=== PATIENT | female | born 1965 | race Caucasian/White ===

== ENCOUNTER 2018-07-17 10:27 | Inpatient (IN) | payer OTHER ==
[2018-07-17 11:30] LABS: ADD MAN DIFF? NO
[2018-07-17 11:36] LABS: BASOPHIL # 0.1 10^3/ul (0.0-0.1); BASOPHILS % 0.5 % (0.0-2.0); EOSINOPHILS # 0.3 10^3/ul (0.0-0.5); EOSINOPHILS % 3.1 % (0.0-7.0); HEMATOCRIT 26.5 % (37.0-47.0); HEMOGLOBIN 7.7 g/dl (12.0-16.0); LYMPHOCYTES # 1.5 10^3/ul (0.8-2.9); LYMPHOCYTES % 14.8 % (15.0-51.0); MEAN CORPUSCULAR HEMOGLOBIN 28.2 pg (29.0-33.0); MEAN CORPUSCULAR HGB CONC 29.1 g/dl (32.0-37.0); MEAN CORPUSCULAR VOLUME 97.1 fl (82.0-101.0); MEAN PLATELET VOLUME 10.5 fl (7.4-10.4); MONOCYTE # 0.9 10^3/ul (0.3-0.9); NEUTROPHIL # 7.2 10^3/ul (1.6-7.5); PLATELET COUNT 404 10^3/UL (140-415); RED BLOOD COUNT 2.73 10^6/ul (4.20-5.40); RED CELL DISTRIBUTION WIDTH 16.9 % (11.5-14.5)
[2018-07-17] MEDS: SODIUM CHLORIDE 0.9% 1L BAG IV* (11:45)
[2018-07-17] MEDS: KETOROLAC 15 MG INJ IV (11:45)
[2018-07-17] MEDS: CEFEPIME 2GM/50 ML (PMX) 50 ML IVPB (11:45)
[2018-07-17] MEDS: LORAZEPAM 2 MG INJ IV (11:51)
[2018-07-17] MEDS: VANCOMYCIN 1 GM (PMX) 250 ML IVPB (11:52)
[2018-07-17 11:57] LABS: LACTIC ACID 1.2 mmol/L (0.5-2.0)
[2018-07-17 11:57] LABS: ALANINE AMINOTRANSFERASE 9 IU/L (13-69); ALBUMIN 3.1 g/dl (3.3-4.9); ALBUMIN/GLOBULIN RATIO 0.65; ALKALINE PHOSPHATASE 113 IU/L (42-121); ANION GAP 16 (8-16); ASPARTATE AMINO TRANSFERASE 13 IU/L (15-46); BLOOD UREA NITROGEN 48 mg/dl (7-20); CALCIUM 8.5 mg/dl (8.4-10.2); CARBON DIOXIDE 33 mmol/L (21-31); CHLORIDE 98 mmol/L (97-110); CREATININE 7.05 mg/dl (0.44-1.00); GLUCOSE 182 mg/dl (70-220); POTASSIUM 4.6 mmol/L (3.5-5.1); SODIUM 142 mmol/L (135-144); TOTAL PROTEIN 7.8 g/dl (6.1-8.1)
[2018-07-17 12:03] LABS: INR 1.05; PROTIME 13.8 Sec (11.9-14.9); PT RATIO 1.1
[2018-07-17 12:04] LABS: PARTIAL THROMBOPLASTIN TIME 33.5 Sec (25.0-35.0)
[2018-07-17 12:05] LABS: TROPONIN-I < 0.012 ng/ml (0.000-0.120)
[2018-07-17] MEDS ORDERED: ONDANSETRON 4 MG INJ IV (14:00)
[2018-07-17] MEDS ORDERED: ACETAMINOPHEN 325 MG TAB PO (14:00)
[2018-07-17 14:14] LABS: LACTIC ACID 1.1 mmol/L (0.5-2.0)
[2018-07-17] MEDS ORDERED: NACL 0.9% 3 ML SYG IV (15:00)
[2018-07-17] MEDS ORDERED: SODIUM CHLORIDE 0.9% 1L BAG IV (16:00)
[2018-07-17 17:03] LABS: AADO2 Arterial 72.2 mmHg (7.0-24.0); Allen Test ACCEPTAB; Arterial Base Excess 3.8 mmol/L (-3.0-3); Arterial Blood Gas Oxygen Sat 94.7 mmHG (95.0-98.0); Arterial COHb 0.7 % (0.0-3.0); Arterial Fraction of Oxyhgb 93.8 % (93.0-99.0); Arterial HCO3 29.7 mmol/L (22.0-26.0); Arterial MetHb 0.3 % (0.0-1.5); Arterial Total Hemglobin 8.8 g/dl (12.0-18.0); MODE NASAL CANNULA; Site Right Radial
[2018-07-17] MEDS: ALBUMIN HUMAN 25% 100 ML IV (20:52)
[2018-07-17] MEDS: HEPARIN 1000 UNITS/ML 10 ML INJ CATHETER (20:53)
[2018-07-17] MEDS ORDERED: PENDING SANTYL ORDER FOR WOUND CARE XX (22:30)
[2018-07-17] MEDS: HEPARIN 5,000 UNIT/0.5 ML VIAL SC (22:41)
[2018-07-17 22:59] LABS: HEPATITIS B SURFACE ANTIBODY NEGATIVE (NEGATIVE)
[2018-07-17 23:45] LABS: HEPATITIS B SURFACE ANTIGEN NEGATIVE (NEGATIVE)
[2018-07-18] MEDS: HEPARIN 5,000 UNIT/0.5 ML VIAL SC ×3 (05:37→21:50)
[2018-07-18] MEDS: LACTULOSE 30ML CUP PO ×2 (09:09→21:13)
[2018-07-18] MEDS: ASPIRIN 81 MG TAB PO (09:09)
[2018-07-18] MEDS ORDERED: VANCOMYCIN IV PER PHARMACY XX (09:30)
[2018-07-18] MEDS: VANCOMYCIN 1 GM 250 ML IVPB (10:24)
[2018-07-18 10:35] LABS: ADD MAN DIFF? NO
[2018-07-18 11:08] LABS: ANION GAP 15 (8-16); BLOOD UREA NITROGEN 27 mg/dl (7-20); CARBON DIOXIDE 27 mmol/L (21-31); CHLORIDE 101 mmol/L (97-110); CREATININE 3.88 mg/dl (0.44-1.00); GLUCOSE 173 mg/dl (70-220); MAGNESIUM 2.2 mg/dl (1.7-2.5); PHOSPHORUS 3.2 mg/dl (2.5-4.9); POTASSIUM 4.8 mmol/L (3.5-5.1); SODIUM 138 mmol/L (135-144)
[2018-07-18 13:18] LABS: WHITE BLOOD COUNT 8.2 10^3/ul (4.8-10.8)
[2018-07-18 13:18] LABS: ABNORMAL IP MESSAGE 1; BASOPHILS % 0.4 % (0.0-2.0); EOSINOPHILS # 0.4 10^3/ul (0.0-0.5); EOSINOPHILS % 5.1 % (0.0-7.0); HEMATOCRIT 25.8 % (37.0-47.0); HEMOGLOBIN 7.4 g/dl (12.0-16.0); LYMPHOCYTES % 12.1 % (15.0-51.0); MEAN CORPUSCULAR HEMOGLOBIN 27.9 pg (29.0-33.0); MEAN CORPUSCULAR HGB CONC 28.7 g/dl (32.0-37.0); MEAN CORPUSCULAR VOLUME 97.4 fl (82.0-101.0); MEAN PLATELET VOLUME 11.3 fl (7.4-10.4); MONOCYTE # 0.6 10^3/ul (0.3-0.9); MONOCYTES % 7.4 % (0.0-11.0); NEUTROPHIL # 6.1 10^3/ul (1.6-7.5); NEUTROPHILS % 74.5 % (39.0-77.0); PLATELET COUNT 323 10^3/UL (140-415); RED BLOOD COUNT 2.65 10^6/ul (4.20-5.40); RED CELL DISTRIBUTION WIDTH 17.1 % (11.5-14.5)
[2018-07-18 13:22] LABS: POSITIVE DIFF @See below
[2018-07-18] MEDS: HALOPERIDOL 1 MG TAB PO (21:13)
[2018-07-19] MEDS: COLLAGENASE 5 GM (UD JAR) TOP ×2 (05:44→09:16)
[2018-07-19 05:58] LABS: ADD MAN DIFF? NO
[2018-07-19] MEDS: FAMOTIDINE 20 MG TAB PO (06:06)
[2018-07-19] MEDS: HEPARIN 5,000 UNIT/0.5 ML VIAL SC ×3 (06:14→22:02)
[2018-07-19 06:22] LABS: BASOPHILS % 0.4 % (0.0-2.0); EOSINOPHILS # 0.4 10^3/ul (0.0-0.5); EOSINOPHILS % 5.4 % (0.0-7.0); HEMATOCRIT 23.7 % (37.0-47.0); LYMPHOCYTES # 1.5 10^3/ul (0.8-2.9); LYMPHOCYTES % 19.5 % (15.0-51.0); MEAN CORPUSCULAR HEMOGLOBIN 28.2 pg (29.0-33.0); MEAN CORPUSCULAR HGB CONC 29.5 g/dl (32.0-37.0); MEAN CORPUSCULAR VOLUME 95.6 fl (82.0-101.0); MEAN PLATELET VOLUME 11.9 fl (7.4-10.4); MONOCYTE # 0.8 10^3/ul (0.3-0.9); MONOCYTES % 10.7 % (0.0-11.0); NEUTROPHIL # 4.9 10^3/ul (1.6-7.5); NEUTROPHILS % 63.4 % (39.0-77.0); RED BLOOD COUNT 2.48 10^6/ul (4.20-5.40); RED CELL DISTRIBUTION WIDTH 17.2 % (11.5-14.5)
[2018-07-19 06:22] LABS: WHITE BLOOD COUNT 7.8 10^3/ul (4.8-10.8)
[2018-07-19 06:33] LABS: PLATELET COUNT 242 10^3/UL (140-415)
[2018-07-19 06:34] LABS: POSITIVE DIFF @See below
[2018-07-19 07:11] LABS: ANION GAP 12 (8-16); BLOOD UREA NITROGEN 32 mg/dl (7-20); CARBON DIOXIDE 27 mmol/L (21-31); CHLORIDE 103 mmol/L (97-110); CREATININE 5.18 mg/dl (0.44-1.00); GLUCOSE 122 mg/dl (70-220); MAGNESIUM 2.2 mg/dl (1.7-2.5); PHOSPHORUS 2.7 mg/dl (2.5-4.9); POTASSIUM 4.2 mmol/L (3.5-5.1); SODIUM 138 mmol/L (135-144)
[2018-07-19] MEDS: LACTULOSE 30ML CUP PO ×2 (09:15→21:49)
[2018-07-19] MEDS: ASPIRIN 81 MG TAB PO (09:16)
[2018-07-19 11:43] LABS: IRON 29 ug/dl (35-150)
[2018-07-19 11:52] LABS: % IRON SATURATION 20 % SAT (22-52); TOTAL IRON BINDING CAPACITY 146 ug/dl (241-421)
[2018-07-19 12:08] LABS: IMMEDIATE SPIN CROSSMATCH 1 1
[2018-07-19 12:57] LABS: FOLATE > 20.0 ng/ml (2.8-20.0)
[2018-07-20] MEDS: FAMOTIDINE 20 MG TAB PO (05:57)
[2018-07-20] MEDS: HEPARIN 5,000 UNIT/0.5 ML VIAL SC ×3 (06:04→21:03)
[2018-07-20 06:40] LABS: VANCOMYCIN,RANDOM 16.2 ug/ml
[2018-07-20] MEDS: COLLAGENASE 5 GM (UD JAR) TOP (08:09)
[2018-07-20] MEDS: LACTULOSE 30ML CUP PO ×2 (08:09→20:48)
[2018-07-20] MEDS: ASPIRIN 81 MG TAB PO (08:09)
[2018-07-20 09:09] LABS: ADD MAN DIFF? NO
[2018-07-20 09:13] LABS: BASOPHILS % 0.4 % (0.0-2.0); EOSINOPHILS # 0.4 10^3/ul (0.0-0.5); EOSINOPHILS % 4.5 % (0.0-7.0); HEMATOCRIT 30.6 % (37.0-47.0); HEMOGLOBIN 9.2 g/dl (12.0-16.0); LYMPHOCYTES # 1.6 10^3/ul (0.8-2.9); LYMPHOCYTES % 19.2 % (15.0-51.0); MEAN CORPUSCULAR HEMOGLOBIN 28.7 pg (29.0-33.0); MEAN CORPUSCULAR HGB CONC 30.1 g/dl (32.0-37.0); MEAN CORPUSCULAR VOLUME 95.3 fl (82.0-101.0); MEAN PLATELET VOLUME 10.4 fl (7.4-10.4); MONOCYTE # 0.9 10^3/ul (0.3-0.9); MONOCYTES % 10.5 % (0.0-11.0); NEUTROPHIL # 5.4 10^3/ul (1.6-7.5); NEUTROPHILS % 64.8 % (39.0-77.0); PLATELET COUNT 399 10^3/UL (140-415); RED BLOOD COUNT 3.21 10^6/ul (4.20-5.40); RED CELL DISTRIBUTION WIDTH 16.5 % (11.5-14.5)
[2018-07-20 09:13] LABS: WHITE BLOOD COUNT 8.3 10^3/ul (4.8-10.8)
[2018-07-20 09:45] LABS: ALANINE AMINOTRANSFERASE 10 IU/L (13-69); ALBUMIN 3.4 g/dl (3.3-4.9); ALBUMIN/GLOBULIN RATIO 0.72; ALKALINE PHOSPHATASE 117 IU/L (42-121); ANION GAP 12 (8-16); ASPARTATE AMINO TRANSFERASE 17 IU/L (15-46); BILIRUBIN,INDIRECT 0.4 mg/dl (0-1.1); BILIRUBIN,TOTAL 0.4 mg/dl (0.2-1.3); BLOOD UREA NITROGEN 21 mg/dl (7-20); CALCIUM 8.2 mg/dl (8.4-10.2); CARBON DIOXIDE 30 mmol/L (21-31); CHLORIDE 101 mmol/L (97-110); CREATININE 3.97 mg/dl (0.44-1.00); GLUCOSE 164 mg/dl (70-220); POTASSIUM 4.1 mmol/L (3.5-5.1); SODIUM 139 mmol/L (135-144); TOTAL PROTEIN 8.1 g/dl (6.1-8.1)
[2018-07-20] MEDS: VANCOMYCIN 1 GM 250 ML IVPB (11:29)
[2018-07-21] MEDS: FAMOTIDINE 20 MG TAB PO (05:18)
[2018-07-21] MEDS: HEPARIN 5,000 UNIT/0.5 ML VIAL SC ×3 (05:21→22:16)
[2018-07-21] MEDS: LACTULOSE 30ML CUP PO ×2 (08:40→20:13)
[2018-07-21] MEDS: COLLAGENASE 5 GM (UD JAR) TOP (08:40)
[2018-07-21] MEDS: ASPIRIN 81 MG TAB PO (08:40)
[2018-07-21] MEDS: HYDROCODONE/APAP (5/325) TAB PO (22:19)
[2018-07-22] MEDS: FAMOTIDINE 20 MG TAB PO (06:25)
[2018-07-22] MEDS: HEPARIN 5,000 UNIT/0.5 ML VIAL SC ×3 (06:36→22:27)
[2018-07-22] MEDS: LACTULOSE 30ML CUP PO ×2 (08:28→21:48)
[2018-07-22] MEDS: COLLAGENASE 5 GM (UD JAR) TOP (08:29)
[2018-07-22] MEDS: HYDROCODONE/APAP (5/325) TAB PO (08:29)
[2018-07-22] MEDS: ASPIRIN 81 MG TAB PO (08:29)
[2018-07-22 09:53] LABS: ADD MAN DIFF? NO
[2018-07-22 09:59] LABS: WHITE BLOOD COUNT 9.2 10^3/ul (4.8-10.8)
[2018-07-22 09:59] LABS: BASOPHIL # 0.1 10^3/ul (0.0-0.1); BASOPHILS % 0.8 % (0.0-2.0); EOSINOPHILS # 0.3 10^3/ul (0.0-0.5); EOSINOPHILS % 3.3 % (0.0-7.0); HEMATOCRIT 33.6 % (37.0-47.0); HEMOGLOBIN 9.9 g/dl (12.0-16.0); LYMPHOCYTES # 1.7 10^3/ul (0.8-2.9); LYMPHOCYTES % 18.5 % (15.0-51.0); MEAN CORPUSCULAR HEMOGLOBIN 28.5 pg (29.0-33.0); MEAN CORPUSCULAR HGB CONC 29.5 g/dl (32.0-37.0); MEAN CORPUSCULAR VOLUME 96.8 fl (82.0-101.0); MEAN PLATELET VOLUME 11.6 fl (7.4-10.4); MONOCYTES % 10.9 % (0.0-11.0); PLATELET COUNT 383 10^3/UL (140-415); RED BLOOD COUNT 3.47 10^6/ul (4.20-5.40); RED CELL DISTRIBUTION WIDTH 16.3 % (11.5-14.5)
[2018-07-22 10:29] LABS: ALANINE AMINOTRANSFERASE 15 IU/L (13-69); ALBUMIN 3.3 g/dl (3.3-4.9); ALBUMIN/GLOBULIN RATIO 0.66; ALKALINE PHOSPHATASE 125 IU/L (42-121); ANION GAP 12 (8-16); ASPARTATE AMINO TRANSFERASE 15 IU/L (15-46); BILIRUBIN,INDIRECT 0.2 mg/dl (0-1.1); BILIRUBIN,TOTAL 0.2 mg/dl (0.2-1.3); BLOOD UREA NITROGEN 23 mg/dl (7-20); CALCIUM 8.6 mg/dl (8.4-10.2); CARBON DIOXIDE 30 mmol/L (21-31); CHLORIDE 99 mmol/L (97-110); CREATININE 3.77 mg/dl (0.44-1.00); GLUCOSE 168 mg/dl (70-220); MAGNESIUM 2.1 mg/dl (1.7-2.5); PHOSPHORUS 2.8 mg/dl (2.5-4.9); POTASSIUM 4.3 mmol/L (3.5-5.1); SODIUM 137 mmol/L (135-144); TOTAL PROTEIN 8.3 g/dl (6.1-8.1)
[2018-07-22] MEDS: ONDANSETRON 4 MG INJ IV ×2 (12:06→19:51)
[2018-07-22] MEDS: PIPER-TAZO 2.25 GM (PMX) 50 ML IVPB (18:59)
[2018-07-22] MEDS: HALOPERIDOL 1 MG TAB PO (21:48)
[2018-07-23] MEDS: FAMOTIDINE 20 MG TAB PO (06:18)
[2018-07-23] MEDS: PIPER-TAZO 2.25 GM (PMX) 50 ML IVPB ×3 (06:18→22:08)
[2018-07-23] MEDS: HEPARIN 5,000 UNIT/0.5 ML VIAL SC ×3 (06:23→22:10)
[2018-07-23] MEDS: LACTULOSE 30ML CUP PO ×2 (09:03→20:38)
[2018-07-23] MEDS: COLLAGENASE 5 GM (UD JAR) TOP (09:03)
[2018-07-23] MEDS: ASPIRIN 81 MG TAB PO (09:03)
[2018-07-23] MEDS: HYDROCODONE/APAP (5/325) TAB PO (09:37)
[2018-07-23] MEDS: ONDANSETRON 4 MG INJ IV (16:11)
[2018-07-23] MEDS: HALOPERIDOL 1 MG TAB PO (20:38)
[2018-07-24] MEDS: HEPARIN 5,000 UNIT/0.5 ML VIAL SC ×4 (06:00→22:00)
[2018-07-24] MEDS: PIPER-TAZO 2.25 GM (PMX) 50 ML IVPB ×3 (06:18→22:00)
[2018-07-24 06:46] LABS: ADD MAN DIFF? NO
[2018-07-24 06:52] LABS: BASOPHIL # 0.1 10^3/ul (0.0-0.1); BASOPHILS % 0.9 % (0.0-2.0); EOSINOPHILS # 0.3 10^3/ul (0.0-0.5); EOSINOPHILS % 3.6 % (0.0-7.0); HEMATOCRIT 37.8 % (37.0-47.0); HEMOGLOBIN 11.2 g/dl (12.0-16.0); LYMPHOCYTES # 1.3 10^3/ul (0.8-2.9); LYMPHOCYTES % 16.1 % (15.0-51.0); MEAN CORPUSCULAR HEMOGLOBIN 28.5 pg (29.0-33.0); MEAN CORPUSCULAR HGB CONC 29.6 g/dl (32.0-37.0); MEAN CORPUSCULAR VOLUME 96.2 fl (82.0-101.0); MEAN PLATELET VOLUME 10.1 fl (7.4-10.4); MONOCYTE # 0.7 10^3/ul (0.3-0.9); MONOCYTES % 8.2 % (0.0-11.0); NEUTROPHIL # 5.6 10^3/ul (1.6-7.5); PLATELET COUNT 513 10^3/UL (140-415); RED BLOOD COUNT 3.93 10^6/ul (4.20-5.40); RED CELL DISTRIBUTION WIDTH 16.1 % (11.5-14.5)
[2018-07-24] MEDS: FAMOTIDINE 20 MG TAB PO (07:00)
[2018-07-24 07:17] LABS: ALANINE AMINOTRANSFERASE 13 IU/L (13-69); ALBUMIN 3.9 g/dl (3.3-4.9); ALKALINE PHOSPHATASE 163 IU/L (42-121); ANION GAP 18 (8-16); ASPARTATE AMINO TRANSFERASE 17 IU/L (15-46); BILIRUBIN,INDIRECT 0.2 mg/dl (0-1.1); BILIRUBIN,TOTAL 0.2 mg/dl (0.2-1.3); BLOOD UREA NITROGEN 42 mg/dl (7-20); CARBON DIOXIDE 26 mmol/L (21-31); CHLORIDE 100 mmol/L (97-110); CREATININE 6.84 mg/dl (0.44-1.00); GLUCOSE 156 mg/dl (70-220); POTASSIUM 5.1 mmol/L (3.5-5.1); SODIUM 139 mmol/L (135-144); TOTAL PROTEIN 9.4 g/dl (6.1-8.1)
[2018-07-24 07:25] LABS: MAGNESIUM 2.3 mg/dl (1.7-2.5)
[2018-07-24 07:25] LABS: PHOSPHORUS 5.2 mg/dl (2.5-4.9)
[2018-07-24] MEDS: LACTULOSE 30ML CUP PO ×2 (09:00→20:45)
[2018-07-24] MEDS: COLLAGENASE 5 GM (UD JAR) TOP ×2 (09:00)
[2018-07-24] MEDS: ASPIRIN 81 MG TAB PO (09:00)
[2018-07-24] MEDS: NIFEdipine (XL) 60 MG TAB PO (17:00)
[2018-07-24] MEDS: CALCIUM ACETATE 667 MG CAP PO (18:05)
[2018-07-24] MEDS: HALOPERIDOL 1 MG TAB PO (20:45)
[2018-07-25] MEDS: HYDROmorphONE 0.5 MG/0.5 ML SYG IV (03:43)
[2018-07-25] MEDS: PIPER-TAZO 2.25 GM (PMX) 50 ML IVPB ×3 (05:47→22:25)
[2018-07-25] MEDS: HEPARIN 5,000 UNIT/0.5 ML VIAL SC ×2 (05:49→14:00)
[2018-07-25] MEDS: FAMOTIDINE 20 MG TAB PO (06:26)
[2018-07-25] MEDS: CALCIUM ACETATE 667 MG CAP PO ×3 (08:00→18:30)
[2018-07-25 08:54] LABS: ADD MAN DIFF? NO
[2018-07-25] MEDS: NIFEdipine (XL) 60 MG TAB PO ×2 (09:00→18:31)
[2018-07-25] MEDS: ASPIRIN 81 MG TAB PO (09:00)
[2018-07-25] MEDS: LACTULOSE 30ML CUP PO ×2 (09:00→21:10)
[2018-07-25] MEDS: COLLAGENASE 5 GM (UD JAR) TOP (09:00)
[2018-07-25 09:01] LABS: BASOPHIL # 0.1 10^3/ul (0.0-0.1); BASOPHILS % 0.7 % (0.0-2.0); EOSINOPHILS # 0.3 10^3/ul (0.0-0.5); EOSINOPHILS % 2.9 % (0.0-7.0); HEMATOCRIT 35.5 % (37.0-47.0); HEMOGLOBIN 10.8 g/dl (12.0-16.0); LYMPHOCYTES # 1.3 10^3/ul (0.8-2.9); LYMPHOCYTES % 11.9 % (15.0-51.0); MEAN CORPUSCULAR HEMOGLOBIN 27.8 pg (29.0-33.0); MEAN CORPUSCULAR HGB CONC 30.4 g/dl (32.0-37.0); MEAN CORPUSCULAR VOLUME 91.5 fl (82.0-101.0); MEAN PLATELET VOLUME 10.2 fl (7.4-10.4); MONOCYTE # 0.8 10^3/ul (0.3-0.9); MONOCYTES % 7.8 % (0.0-11.0); NEUTROPHILS % 74.3 % (39.0-77.0); PLATELET COUNT 480 10^3/UL (140-415); RED BLOOD COUNT 3.88 10^6/ul (4.20-5.40); RED CELL DISTRIBUTION WIDTH 16.4 % (11.5-14.5)
[2018-07-25 09:01] LABS: WHITE BLOOD COUNT 10.8 10^3/ul (4.8-10.8)
[2018-07-25 09:21] LABS: ANION GAP 15 (8-16); BLOOD UREA NITROGEN 19 mg/dl (7-20); CALCIUM 8.9 mg/dl (8.4-10.2); CARBON DIOXIDE 28 mmol/L (21-31); CHLORIDE 100 mmol/L (97-110); CREATININE 3.88 mg/dl (0.44-1.00); GLUCOSE 213 mg/dl (70-220); POTASSIUM 4.1 mmol/L (3.5-5.1); SODIUM 139 mmol/L (135-144)
[2018-07-25 10:03] LABS: B-TYPE NATRIURETIC PEPTIDE 19300 PG/ML (0-125)
[2018-07-25] MEDS: ONDANSETRON 4 MG INJ IV (14:29)
[2018-07-25] MEDS: HALOPERIDOL 1 MG TAB PO (22:25)
[2018-07-26] MEDS: PIPER-TAZO 2.25 GM (PMX) 50 ML IVPB ×3 (05:38→21:43)
[2018-07-26] MEDS: FAMOTIDINE 20 MG TAB PO (06:51)
[2018-07-26] MEDS ORDERED: CEFAZOLIN 1 GM INJ (07:00)
[2018-07-26] MEDS ORDERED: ALBUMIN HUMAN 25% 100 ML INJ (07:00)
[2018-07-26] MEDS ORDERED: ONDANSETRON 4 MG INJ (07:00)
[2018-07-26 07:04] LABS: ADD MAN DIFF? NO
[2018-07-26 07:16] LABS: WHITE BLOOD COUNT 7.8 10^3/ul (4.8-10.8)
[2018-07-26 07:16] LABS: BASOPHIL # 0.1 10^3/ul (0.0-0.1); BASOPHILS % 1.1 % (0.0-2.0); EOSINOPHILS # 0.3 10^3/ul (0.0-0.5); EOSINOPHILS % 3.4 % (0.0-7.0); HEMATOCRIT 33.8 % (37.0-47.0); HEMOGLOBIN 10.1 g/dl (12.0-16.0); LYMPHOCYTES # 1.6 10^3/ul (0.8-2.9); LYMPHOCYTES % 19.8 % (15.0-51.0); MEAN CORPUSCULAR HEMOGLOBIN 27.8 pg (29.0-33.0); MEAN CORPUSCULAR HGB CONC 29.9 g/dl (32.0-37.0); MEAN CORPUSCULAR VOLUME 93.1 fl (82.0-101.0); MONOCYTE # 0.9 10^3/ul (0.3-0.9); MONOCYTES % 11.2 % (0.0-11.0); NEUTROPHIL # 4.9 10^3/ul (1.6-7.5); PLATELET COUNT 508 10^3/UL (140-415); RED BLOOD COUNT 3.63 10^6/ul (4.20-5.40); RED CELL DISTRIBUTION WIDTH 16.4 % (11.5-14.5)
[2018-07-26 07:58] LABS: ANION GAP 18 (8-16); BLOOD UREA NITROGEN 27 mg/dl (7-20); CALCIUM 9.1 mg/dl (8.4-10.2); CARBON DIOXIDE 27 mmol/L (21-31); CHLORIDE 99 mmol/L (97-110); CREATININE 5.36 mg/dl (0.44-1.00); GLUCOSE 193 mg/dl (70-220); POTASSIUM 4.5 mmol/L (3.5-5.1); SODIUM 139 mmol/L (135-144)
[2018-07-26] MEDS: CALCIUM ACETATE 667 MG CAP PO ×3 (08:00→18:00)
[2018-07-26] MEDS: NIFEdipine (XL) 60 MG TAB PO (08:33)
[2018-07-26] MEDS: LACTULOSE 30ML CUP PO ×2 (08:33→21:00)
[2018-07-26] MEDS: ASPIRIN 81 MG TAB PO (08:33)
[2018-07-26] MEDS: HYDROmorphONE 0.5 MG/0.5 ML SYG IV ×2 (08:33→23:53)
[2018-07-26] MEDS: COLLAGENASE 5 GM (UD JAR) TOP (09:00)
[2018-07-26] MEDS ORDERED: FENTAnyl 50 MCG/ML VIAL (15:58)
[2018-07-26] MEDS ORDERED: ETOMIDATE 20 MG INJ (16:04)
[2018-07-26] MEDS ORDERED: MIDAZOLAM 1 MG/ML 2 ML INJ (16:04)
[2018-07-26] MEDS ORDERED: LIDOCAINE 2% (SDV) 5 ML INJ ×2 (16:04→16:50)
[2018-07-26] MEDS ORDERED: ROPIVACAINE 0.5 % 30 ML VIAL (16:27)
[2018-07-26] MEDS ORDERED: EPINEPHrine 1 MG INJ (16:28)
[2018-07-26] MEDS ORDERED: hydrALAzine 20 MG INJ IV (16:30)
[2018-07-26] MEDS ORDERED: MEPERIDINE 25 MG INJ IV (16:30)
[2018-07-26] MEDS ORDERED: IPRATROPIUM (NEB) 0.5 MG/2.5 ML AMP HHN (16:30)
[2018-07-26] MEDS ORDERED: DIPHENHYDRAMINE 50 MG INJ IV (16:30)
[2018-07-26] MEDS ORDERED: HYDROmorphONE 1 MG/5 ML IV SYRINGE IV ×3 (16:30)
[2018-07-26] MEDS ORDERED: FENTAnyl 50 MCG/ML VIAL IV ×2 (16:30)
[2018-07-26] MEDS ORDERED: LEVALBUTEROL (NEB) 1.25 MG/0.5 ML AMP HHN (16:30)
[2018-07-26] MEDS ORDERED: ONDANSETRON 4 MG INJ IV (16:30)
[2018-07-26] MEDS ORDERED: LABETALOL HCL 20MG INJ IV (16:30)
[2018-07-26] MEDS: HALOPERIDOL 1 MG TAB PO (21:00)
[2018-07-27] MEDS: HYDROmorphONE 1 MG/ML SYG IV (01:49)
[2018-07-27] MEDS ORDERED: GLUCOSE GEL 15 GRAM TUBE PO ×2 (02:00)
[2018-07-27] MEDS ORDERED: DEXTROSE 50% 50 ML SYRINGE IV ×2 (02:00)
[2018-07-27] MEDS ORDERED: GLUCAGON 1 MG INJ IM (02:00)
[2018-07-27] MEDS ORDERED: GLUCOSE GEL 15 GRAM TUBE BUCCAL (02:00)
[2018-07-27] MEDS: ACCU-CHEK XX (02:00)
[2018-07-27] MEDS: HYDROmorphONE 0.5 MG/0.5 ML SYG IV ×4 (05:18→21:11)
[2018-07-27] MEDS: PIPER-TAZO 2.25 GM (PMX) 50 ML IVPB ×3 (05:21→21:11)
[2018-07-27] MEDS: FAMOTIDINE 20 MG TAB PO (06:46)
[2018-07-27] MEDS: NIFEdipine (XL) 60 MG TAB PO (08:39)
[2018-07-27] MEDS: CALCIUM ACETATE 667 MG CAP PO ×4 (08:39→17:44)
[2018-07-27] MEDS: LACTULOSE 30ML CUP PO ×2 (08:40→21:10)
[2018-07-27] MEDS: ONDANSETRON 4 MG INJ IV ×2 (08:40→13:55)
[2018-07-27] MEDS: ASPIRIN 81 MG TAB PO (08:40)
[2018-07-27] MEDS: INSULIN ASPART [NOVOLOG] 3 ML PEN SC ×5 (08:45→21:21)
[2018-07-27] MEDS: COLLAGENASE 5 GM (UD JAR) TOP (08:50)
[2018-07-27 12:13] LABS: ADD MAN DIFF? NO
[2018-07-27 12:19] LABS: BASOPHIL # 0.1 10^3/ul (0.0-0.1); BASOPHILS % 0.4 % (0.0-2.0); EOSINOPHILS % 0.2 % (0.0-7.0); HEMATOCRIT 30.9 % (37.0-47.0); HEMOGLOBIN 9.3 g/dl (12.0-16.0); LYMPHOCYTES # 0.9 10^3/ul (0.8-2.9); LYMPHOCYTES % 7.2 % (15.0-51.0); MEAN CORPUSCULAR HEMOGLOBIN 28.4 pg (29.0-33.0); MEAN CORPUSCULAR HGB CONC 30.1 g/dl (32.0-37.0); MEAN CORPUSCULAR VOLUME 94.5 fl (82.0-101.0); MONOCYTE # 0.8 10^3/ul (0.3-0.9); MONOCYTES % 6.4 % (0.0-11.0); NEUTROPHIL # 11.1 10^3/ul (1.6-7.5); NEUTROPHILS % 84.4 % (39.0-77.0); PLATELET COUNT 432 10^3/UL (140-415); RED BLOOD COUNT 3.27 10^6/ul (4.20-5.40); RED CELL DISTRIBUTION WIDTH 16.3 % (11.5-14.5)
[2018-07-27 12:19] LABS: WHITE BLOOD COUNT 13.1 10^3/ul (4.8-10.8)
[2018-07-27 12:50] LABS: ANION GAP 12 (8-16); BLOOD UREA NITROGEN 19 mg/dl (7-20); CALCIUM 9.3 mg/dl (8.4-10.2); CARBON DIOXIDE 29 mmol/L (21-31); CHLORIDE 103 mmol/L (97-110); CREATININE 4.12 mg/dl (0.44-1.00); GLUCOSE 193 mg/dl (70-220); POTASSIUM 4.4 mmol/L (3.5-5.1); SODIUM 140 mmol/L (135-144)
[2018-07-27] MEDS ORDERED: hydrALAzine 20 MG INJ IV (13:30)
[2018-07-27] MEDS: HALOPERIDOL 1 MG TAB PO (21:10)
[2018-07-28] MEDS: HYDROmorphONE 0.5 MG/0.5 ML SYG IV ×3 (01:13→14:04)
[2018-07-28] MEDS: ACCU-CHEK XX (02:00)
[2018-07-28 05:40] LABS: ADD MAN DIFF? NO
[2018-07-28 05:42] LABS: BASOPHIL # 0.1 10^3/ul (0.0-0.1); EOSINOPHILS # 0.2 10^3/ul (0.0-0.5); HEMATOCRIT 30.9 % (37.0-47.0); HEMOGLOBIN 9.2 g/dl (12.0-16.0); LYMPHOCYTES # 1.5 10^3/ul (0.8-2.9); LYMPHOCYTES % 18.9 % (15.0-51.0); MEAN CORPUSCULAR HEMOGLOBIN 28.2 pg (29.0-33.0); MEAN CORPUSCULAR HGB CONC 29.8 g/dl (32.0-37.0); MEAN CORPUSCULAR VOLUME 94.8 fl (82.0-101.0); MEAN PLATELET VOLUME 10.1 fl (7.4-10.4); MONOCYTE # 0.8 10^3/ul (0.3-0.9); MONOCYTES % 10.8 % (0.0-11.0); NEUTROPHILS % 65.1 % (39.0-77.0); PLATELET COUNT 434 10^3/UL (140-415); RED BLOOD COUNT 3.26 10^6/ul (4.20-5.40); RED CELL DISTRIBUTION WIDTH 16.9 % (11.5-14.5)
[2018-07-28 05:42] LABS: WHITE BLOOD COUNT 7.7 10^3/ul (4.8-10.8)
[2018-07-28] MEDS: PIPER-TAZO 2.25 GM (PMX) 50 ML IVPB ×3 (05:59→22:28)
[2018-07-28] MEDS: FAMOTIDINE 20 MG TAB PO (06:01)
[2018-07-28 06:09] LABS: ANION GAP 18 (8-16); BLOOD UREA NITROGEN 25 mg/dl (7-20); CALCIUM 9.1 mg/dl (8.4-10.2); CARBON DIOXIDE 26 mmol/L (21-31); CHLORIDE 104 mmol/L (97-110); GLUCOSE 253 mg/dl (70-220); POTASSIUM 4.3 mmol/L (3.5-5.1); SODIUM 144 mmol/L (135-144)
[2018-07-28] MEDS: LACTULOSE 30ML CUP PO ×2 (08:36→22:33)
[2018-07-28] MEDS: NIFEdipine (XL) 60 MG TAB PO (08:37)
[2018-07-28] MEDS: CALCIUM ACETATE 667 MG CAP PO ×3 (08:37→17:40)
[2018-07-28] MEDS: ASPIRIN 81 MG TAB PO (08:37)
[2018-07-28] MEDS: INSULIN ASPART [NOVOLOG] 3 ML PEN SC ×4 (08:42→21:00)
[2018-07-28] MEDS: COLLAGENASE 5 GM (UD JAR) TOP (08:44)
[2018-07-28] MEDS: ONDANSETRON 4 MG INJ IV (08:54)
[2018-07-28 13:42] LABS: HEMOGLOBIN A1C 6.9 % (0-5.9)
[2018-07-28] MEDS: ALBUMIN HUMAN 25% 100 ML IV (20:43)
[2018-07-28] MEDS: HYDROmorphONE 2 MG TAB PO (21:43)
[2018-07-28] MEDS: HALOPERIDOL 1 MG TAB PO (22:28)
[2018-07-28] MEDS: HEPARIN 5,000 UNIT/0.5 ML VIAL SC (22:31)
[2018-07-29] MEDS: ACCU-CHEK XX (01:47)
[2018-07-29] MEDS: HYDROmorphONE 2 MG TAB PO ×3 (02:28→21:25)
[2018-07-29] MEDS: PIPER-TAZO 2.25 GM (PMX) 50 ML IVPB ×3 (05:19→21:25)
[2018-07-29] MEDS: HYDROCODONE/APAP (5/325) TAB PO ×2 (05:20→10:33)
[2018-07-29] MEDS: HEPARIN 5,000 UNIT/0.5 ML VIAL SC ×3 (05:21→22:43)
[2018-07-29 06:39] LABS: ADD MAN DIFF? NO
[2018-07-29 06:40] LABS: WHITE BLOOD COUNT 7.3 10^3/ul (4.8-10.8)
[2018-07-29 06:40] LABS: BASOPHIL # 0.1 10^3/ul (0.0-0.1); BASOPHILS % 1.2 % (0.0-2.0); EOSINOPHILS # 0.3 10^3/ul (0.0-0.5); EOSINOPHILS % 4.3 % (0.0-7.0); HEMATOCRIT 30.5 % (37.0-47.0); HEMOGLOBIN 9.1 g/dl (12.0-16.0); LYMPHOCYTES # 1.5 10^3/ul (0.8-2.9); LYMPHOCYTES % 20.1 % (15.0-51.0); MEAN CORPUSCULAR HEMOGLOBIN 28.2 pg (29.0-33.0); MEAN CORPUSCULAR HGB CONC 29.8 g/dl (32.0-37.0); MEAN CORPUSCULAR VOLUME 94.4 fl (82.0-101.0); MEAN PLATELET VOLUME 10.3 fl (7.4-10.4); MONOCYTE # 0.8 10^3/ul (0.3-0.9); MONOCYTES % 10.8 % (0.0-11.0); NEUTROPHIL # 4.5 10^3/ul (1.6-7.5); NEUTROPHILS % 62.5 % (39.0-77.0); PLATELET COUNT 384 10^3/UL (140-415); RED BLOOD COUNT 3.23 10^6/ul (4.20-5.40); RED CELL DISTRIBUTION WIDTH 16.9 % (11.5-14.5)
[2018-07-29] MEDS: FAMOTIDINE 20 MG TAB PO (06:57)
[2018-07-29 07:20] LABS: ANION GAP 16 (8-16); BLOOD UREA NITROGEN 13 mg/dl (7-20); CALCIUM 9.1 mg/dl (8.4-10.2); CARBON DIOXIDE 29 mmol/L (21-31); CHLORIDE 101 mmol/L (97-110); GLUCOSE 239 mg/dl (70-220); POTASSIUM 4.5 mmol/L (3.5-5.1); SODIUM 141 mmol/L (135-144)
[2018-07-29] MEDS: NIFEdipine (XL) 60 MG TAB PO (08:31)
[2018-07-29] MEDS: LACTULOSE 30ML CUP PO ×2 (08:31→20:45)
[2018-07-29] MEDS: ASPIRIN 81 MG TAB PO (08:31)
[2018-07-29] MEDS: CALCIUM ACETATE 667 MG CAP PO ×3 (08:31→17:48)
[2018-07-29] MEDS: COLLAGENASE 5 GM (UD JAR) TOP (08:32)
[2018-07-29] MEDS: INSULIN ASPART [NOVOLOG] 3 ML PEN SC ×4 (08:36→20:48)
[2018-07-29] MEDS: ONDANSETRON INJ 8 MG in SOD CHLORIDE 0.9% 50 ML IV (14:24)
[2018-07-29] MEDS: HALOPERIDOL 1 MG TAB PO (20:46)
[2018-07-30] MEDS: ACCU-CHEK XX (02:00)
[2018-07-30] MEDS: PIPER-TAZO 2.25 GM (PMX) 50 ML IVPB ×3 (06:26→21:40)
[2018-07-30] MEDS: FAMOTIDINE 20 MG TAB PO (06:26)
[2018-07-30] MEDS: HEPARIN 5,000 UNIT/0.5 ML VIAL SC ×4 (06:38→21:48)
[2018-07-30] MEDS: HYDROmorphONE 2 MG TAB PO ×3 (06:43→20:07)
[2018-07-30 06:49] LABS: ADD MAN DIFF? NO
[2018-07-30 06:55] LABS: WHITE BLOOD COUNT 7.1 10^3/ul (4.8-10.8)
[2018-07-30 06:55] LABS: BASOPHIL # 0.1 10^3/ul (0.0-0.1); BASOPHILS % 1.6 % (0.0-2.0); EOSINOPHILS # 0.5 10^3/ul (0.0-0.5); EOSINOPHILS % 6.5 % (0.0-7.0); HEMATOCRIT 34.1 % (37.0-47.0); HEMOGLOBIN 10.1 g/dl (12.0-16.0); LYMPHOCYTES # 1.7 10^3/ul (0.8-2.9); LYMPHOCYTES % 23.6 % (15.0-51.0); MEAN CORPUSCULAR HEMOGLOBIN 28.1 pg (29.0-33.0); MEAN CORPUSCULAR HGB CONC 29.6 g/dl (32.0-37.0); MEAN CORPUSCULAR VOLUME 94.7 fl (82.0-101.0); MEAN PLATELET VOLUME 10.6 fl (7.4-10.4); MONOCYTE # 0.6 10^3/ul (0.3-0.9); MONOCYTES % 8.6 % (0.0-11.0); NEUTROPHIL # 4.2 10^3/ul (1.6-7.5); NEUTROPHILS % 58.9 % (39.0-77.0); PLATELET COUNT 416 10^3/UL (140-415)
[2018-07-30 07:21] LABS: ANION GAP 18 (8-16); BLOOD UREA NITROGEN 22 mg/dl (7-20); CALCIUM 9.5 mg/dl (8.4-10.2); CARBON DIOXIDE 27 mmol/L (21-31); CHLORIDE 103 mmol/L (97-110); CREATININE 5.16 mg/dl (0.44-1.00); GLUCOSE 222 mg/dl (70-220); POTASSIUM 4.7 mmol/L (3.5-5.1); SODIUM 143 mmol/L (135-144)
[2018-07-30] MEDS: INSULIN ASPART [NOVOLOG] 3 ML PEN SC ×4 (08:10→21:03)
[2018-07-30] MEDS: LACTULOSE 30ML CUP PO ×2 (08:21→21:04)
[2018-07-30] MEDS: ASPIRIN 81 MG TAB PO (08:21)
[2018-07-30] MEDS: CALCIUM ACETATE 667 MG CAP PO ×4 (08:22→18:13)
[2018-07-30] MEDS: NIFEdipine (XL) 60 MG TAB PO (08:23)
[2018-07-30] MEDS: COLLAGENASE 5 GM (UD JAR) TOP (08:33)
[2018-07-30] MEDS: ONDANSETRON INJ 8 MG in SOD CHLORIDE 0.9% 50 ML IV (09:42)
[2018-07-30] MEDS: HALOPERIDOL 1 MG TAB PO (21:03)
[2018-07-30] MEDS: HYDROCODONE/APAP (5/325) TAB PO (23:56)
[2018-07-31] MEDS: ACCU-CHEK XX (02:07)
[2018-07-31] MEDS: HYDROmorphONE 2 MG TAB PO ×2 (04:02→10:50)
[2018-07-31] MEDS: HEPARIN 5,000 UNIT/0.5 ML VIAL SC ×3 (05:02→22:00)
[2018-07-31] MEDS: PIPER-TAZO 2.25 GM (PMX) 50 ML IVPB (05:35)
[2018-07-31] MEDS: FAMOTIDINE 20 MG TAB PO (06:44)
[2018-07-31] MEDS: CALCIUM ACETATE 667 MG CAP PO ×4 (08:00→18:29)
[2018-07-31] MEDS: COLLAGENASE 5 GM (UD JAR) TOP (08:57)
[2018-07-31] MEDS: NIFEdipine (XL) 60 MG TAB PO (09:00)
[2018-07-31] MEDS: INSULIN ASPART [NOVOLOG] 3 ML PEN SC ×4 (09:23→21:36)
[2018-07-31] MEDS: ASPIRIN 81 MG TAB PO (10:32)
[2018-07-31] MEDS: LACTULOSE 30ML CUP PO ×2 (10:32→21:12)
[2018-07-31] MEDS ORDERED: ONDANSETRON 4 MG INJ IV (13:30)
[2018-07-31] MEDS ORDERED: LEVALBUTEROL (NEB) 1.25 MG/0.5 ML AMP HHN (13:30)
[2018-07-31] MEDS ORDERED: IPRATROPIUM (NEB) 0.5 MG/2.5 ML AMP HHN (13:30)
[2018-07-31] MEDS: HALOPERIDOL 5 MG INJ IV (21:14)
[2018-07-31] MEDS: HYDROCODONE/APAP (5/325) TAB PO (21:19)
[2018-07-31] MEDS: HALOPERIDOL 1 MG TAB PO (21:21)
[2018-08-01] MEDS: HYDROmorphONE 2 MG TAB PO ×3 (01:57→18:22)
[2018-08-01] MEDS: ACCU-CHEK XX (01:57)
[2018-08-01] MEDS: HYDROCODONE/APAP (5/325) TAB PO ×2 (05:26→15:18)
[2018-08-01] MEDS: HEPARIN 5,000 UNIT/0.5 ML VIAL SC (05:31)
[2018-08-01] MEDS: FAMOTIDINE 20 MG TAB PO (06:40)
[2018-08-01 06:53] LABS: ADD MAN DIFF? NO
[2018-08-01 07:01] LABS: BASOPHIL # 0.1 10^3/ul (0.0-0.1); BASOPHILS % 1.5 % (0.0-2.0); EOSINOPHILS # 0.6 10^3/ul (0.0-0.5); EOSINOPHILS % 7.3 % (0.0-7.0); HEMATOCRIT 32.1 % (37.0-47.0); HEMOGLOBIN 9.3 g/dl (12.0-16.0); LYMPHOCYTES # 2.1 10^3/ul (0.8-2.9); LYMPHOCYTES % 26.2 % (15.0-51.0); MEAN CORPUSCULAR HEMOGLOBIN 27.8 pg (29.0-33.0); MEAN CORPUSCULAR VOLUME 95.8 fl (82.0-101.0); MEAN PLATELET VOLUME 10.8 fl (7.4-10.4); MONOCYTE # 0.8 10^3/ul (0.3-0.9); MONOCYTES % 10.3 % (0.0-11.0); NEUTROPHIL # 4.3 10^3/ul (1.6-7.5); NEUTROPHILS % 53.4 % (39.0-77.0); PLATELET COUNT 377 10^3/UL (140-415); RED BLOOD COUNT 3.35 10^6/ul (4.20-5.40); RED CELL DISTRIBUTION WIDTH 17.1 % (11.5-14.5)
[2018-08-01 07:20] LABS: ANION GAP 17 (8-16); BLOOD UREA NITROGEN 20 mg/dl (7-20); CALCIUM 9.3 mg/dl (8.4-10.2); CARBON DIOXIDE 29 mmol/L (21-31); CHLORIDE 98 mmol/L (97-110); CREATININE 5.26 mg/dl (0.44-1.00); GLUCOSE 193 mg/dl (70-220); POTASSIUM 4.7 mmol/L (3.5-5.1); SODIUM 139 mmol/L (135-144)
[2018-08-01] MEDS: INSULIN ASPART [NOVOLOG] 3 ML PEN SC ×4 (08:00→18:00)
[2018-08-01] MEDS: LACTULOSE 30ML CUP PO (09:18)
[2018-08-01] MEDS: CALCIUM ACETATE 667 MG CAP PO ×3 (09:18→18:22)
[2018-08-01] MEDS: ASPIRIN 81 MG TAB PO (09:18)
[2018-08-01] MEDS: COLLAGENASE 5 GM (UD JAR) TOP (09:18)
[2018-08-01] MEDS: NIFEdipine (XL) 60 MG TAB PO (09:20)
[2018-08-01] MEDS: ONDANSETRON 4 MG INJ IV (12:58)
== END 2018-08-01 21:05 | DRG 40 ==
LOC: 2NE 07-23 17:16 → E/R 10:27 → 6WM 14:01
PROC: 0Y6C0Z3 Detachment at Right Upper Leg, Low, Open Approach (ICD-10-PCS; principal; 2018-07-26 16:30)
PROC: 5A1D70Z Performance of Urinary Filtration, Intermittent, Less than 6 Hours Per Day (ICD-10-PCS; 2018-07-26 17:00)
PROC: 30233N1 Transfusion of Nonautologous Red Blood Cells into Peripheral Vein, Percutaneous Approach (ICD-10-PCS; 2018-07-26 17:00)
DX: G92 Toxic encephalopathy (principal); N18.6 End stage renal disease; M86.9 Osteomyelitis, unspecified; E11.52 Type 2 diabetes mellitus with diabetic peripheral angiopathy with gangrene; I96 Gangrene, not elsewhere classified; L97.318 Non-pressure chronic ulcer of right ankle with other specified severity; I12.0 Hypertensive chronic kidney disease with stage 5 chronic kidney disease or end stage renal disease; E11.22 Type 2 diabetes mellitus with diabetic chronic kidney disease; E11.69 Type 2 diabetes mellitus with other specified complication; E11.621 Type 2 diabetes mellitus with foot ulcer; D63.1 Anemia in chronic kidney disease; E78.5 Hyperlipidemia, unspecified; E66.9 Obesity, unspecified; F99 Mental disorder, not otherwise specified; I48.0 Paroxysmal atrial fibrillation; Z68.34 Body mass index [BMI] 34.0-34.9, adult; Z99.2 Dependence on renal dialysis; Z89.612 Acquired absence of left leg above knee; Z93.3 Colostomy status; Z74.01 Bed confinement status; Z79.82 Long term (current) use of aspirin
CPT/HCPCS: 36415; 36430; 36600; 70450; 71045; 73610-RT; 76700; 80048; 80053; 80202; 82607; 82728; 82746; 82803; 82962; 83036; 83540; 83605; 83735; 83880; 84100; 84484; 85025; 85610; 85730; 86706; 86850; 86900; 86901; 86920; 87040; 87070; 87081; 87340; 88305; 90935; 93005; 96374; 96375; 99285-25